=== PATIENT | female | born 1975 ===

== ENCOUNTER 2025-05-15 22:11 | Inpatient (IN) | payer BC ==
[2025-05-15 23:31] VITALS: BMI 30.2
[2025-05-16] MEDS ORDERED: Calcium Carbonate 500 MG ChewTAB PO PRN (00:01)
[2025-05-16] MEDS ORDERED: Senokot S 8.6-50 MG TAB PO PRN (00:01)
[2025-05-16] MEDS ORDERED: Electrolyte Replacement Protocol 1 EACH FS SCH (00:15)
[2025-05-16 00:55] LABS: #Basophils 0.07 10x3/uL (0.0-0.2); #Eosinophils 0.14 10x3/uL (0.0-0.7); #Monocytes 0.88 10x3/uL (0.11-0.59); #Neutrophils 10.93 10x3/uL (1.40-6.50); %Basophils 0.5 % (0.0-1.0); %Eosinophils 1.0 % (0.0-10.0); %Lymphocytes 10.9 % (21.0-51.0); %Monocytes 6.5 % (0.0-10.0); %Neutrophils 80.7 % (42.0-75.0); Hematocrit 34.8 % (36.0-47.0); Hemoglobin 11.2 g/dL (12.0-16.0); Mean Corpuscular Hemoglobin 27.4 pg (27.0-31.0); Mean Corpuscular Volume 85.1 fL (78.0-98.0); Platelet Count 275 10x3/uL (130-400); Red Blood Cell (RBC) Count 4.09 mill/uL (4.20-5.40); White Blood Cell (WBC) Count 13.55 10x3/uL (4.8-10.8)
[2025-05-16] MEDS ORDERED: cefTRIAXone\\ROCEPHIN 1 GM in Sodium Chloride 0.9% 100 ML IVPB SCH (01:00)
[2025-05-16 01:28] LABS: Anion Gap 12 mmol/L (10-20); BUN (Urea Nitrogen) 13 mg/dL (7.0-18.7); Calc. Creatinine Clearance 94 mL/min (70-130); Calcium 8.6 mg/dL (7.8-10.44); Carbon Dioxide 21 mmol/L (22-29); Chloride 106 mmol/L (98-107); Glucose 169 mg/dL (70-105); Potassium 3.9 mmol/L (3.5-5.1); Sodium 135 mmol/L (136-145)
[2025-05-16 01:37] LABS: Bacteria/HPF 2+ HPF (None Seen); CAUTI Indications for Culture Fever or rigors; Glucose, Urine (Dipstick) Normal (Negative); Leukocyte 500 Leu/uL (Negative); Protein, Urine (Dipstick) 30 mg/dL (Neg-Trace); RBC/HPF 21-50 HPF (0-3); Specific Gravity, Urine 1.009 (1.002-1.036); WBC/HPF Greater than 50 HPF (0-3)
[2025-05-16 01:39] LABS: Urine Culture Reflex Yes Yes
[2025-05-16] MEDS: Ondansetron PF 4 MG/2 ML Vial IVP PRN (04:51)
[2025-05-16] MEDS: Acetaminophen 325 MG TAB PO PRN (08:37)
[2025-05-16] MEDS: Famotidine 20 MG TAB PO SCH (08:37)
[2025-05-16] MEDS: Losartan 25 MG TAB PO SCH (08:50)
[2025-05-16 14:08] LABS: Bacteria/HPF None Seen HPF (None Seen); Glucose, Urine (Dipstick) Normal (Negative); Leukocyte 250 Leu/uL (Negative); Protein, Urine (Dipstick) Negative (Neg-Trace); RBC/HPF 0-3 HPF (0-3); Specific Gravity, Urine 1.009 (1.002-1.036)
[2025-05-16] MEDS ORDERED: fentaNYL PF 100 MCG/2 ML SYRINGE ONE (17:22)
[2025-05-16] MEDS ORDERED: PROPOFOL 20 ML ONE (17:23)
[2025-05-16] MEDS ORDERED: Rocuronium Bromide 10 MG/ML (10ML VIAL) ONE (17:23)
[2025-05-16] MEDS ORDERED: Lidocaine 1% PF 5 ML VIAL ONE (17:23)
[2025-05-16] MEDS ORDERED: Ondansetron PF 4 MG/2 ML Vial ONE (18:03)
[2025-05-16] MEDS ORDERED: SUGAMMADEX SODIUM 200 MG/2 ML VIAL ONE (18:15)
[2025-05-16] MEDS: Ketorolac Tromethamine 30 MG (1 mL) VIAL IVP PRN (20:49)
[2025-05-16] MEDS: cefTRIAXone\\ROCEPHIN 1 GM in Sodium Chloride 0.9% 100 ML IVPB SCH (20:50)
[2025-05-17 06:03] LABS: #Basophils Less than 0.03 10x3/uL (0.0-0.2); #Eosinophils Less than 0.03 10x3/uL (0.0-0.7); #Monocytes 0.23 10x3/uL (0.11-0.59); #Neutrophils 7.90 10x3/uL (1.40-6.50); %Basophils 0.2 % (0.0-1.0); %Eosinophils 0.0 % (0.0-10.0); %Lymphocytes 8.4 % (21.0-51.0); %Monocytes 2.6 % (0.0-10.0); %Neutrophils 88.4 % (42.0-75.0); Hematocrit 36.7 % (36.0-47.0); Hemoglobin 11.6 g/dL (12.0-16.0); Mean Corpuscular Hemoglobin 27.1 pg (27.0-31.0); Mean Corpuscular Volume 85.7 fL (78.0-98.0); Platelet Count 243 10x3/uL (130-400); Red Blood Cell (RBC) Count 4.28 mill/uL (4.20-5.40); White Blood Cell (WBC) Count 8.94 10x3/uL (4.8-10.8)
[2025-05-17 06:20] LABS: Anion Gap 11 mmol/L (10-20); BUN (Urea Nitrogen) 8 mg/dL (7.0-18.7); Calc. Creatinine Clearance 123 mL/min (70-130); Calcium 8.4 mg/dL (7.8-10.44); Carbon Dioxide 22 mmol/L (22-29); Chloride 111 mmol/L (98-107); Glucose 167 mg/dL (70-105); Potassium 4.1 mmol/L (3.5-5.1); Sodium 140 mmol/L (136-145)
[2025-05-17 08:18] VITALS: BP 126/83; TEMP 97.6
== END 2025-05-17 11:50 | disposition home or self-care (01) | DRG 854 ==
LOC: T4-B 22:11
PROVIDERS: ADMIT Internal Medicine; ATTEND Internal Medicine
PROC: 0T778DZ Dilation of Left Ureter with Intraluminal Device, Via Natural or Artificial Opening Endoscopic (ICD-10-PCS; principal; 2025-05-16)
PROC: 3E03329 Introduction of Other Anti-infective into Peripheral Vein, Percutaneous Approach (ICD-10-PCS; 2025-05-16)
DX: A41.9 Sepsis, unspecified organism (principal); N13.6 Pyonephrosis; I10 Essential (primary) hypertension; Z88.5 Allergy status to narcotic agent; F32.A Depression, unspecified; Z98.890 Other specified postprocedural states; R31.9 Hematuria, unspecified; F41.9 Anxiety disorder, unspecified; Z79.899 Other long term (current) drug therapy
CPT/HCPCS: 36415; 74420; 80048; 81001; 81015; 85025; 87040; 87086; 93005; 93010; C1769; J0696; J1100; J1885; J2405; J2704; J7030